=== PATIENT | female | born 1965 ===

== ENCOUNTER 2017-11-23 08:58 | Observation (INO) | payer MEDICARE, MEDICAID ==
[2017-11-23] MEDS ORDERED: Sodium Chloride 0.9% 1,000 ML IV ONE (09:26)
[2017-11-23] MEDS ORDERED: Sodium Chloride 0.9% 1,000 ML ONE ×2 (09:33→09:34)
[2017-11-23 09:45] LABS: HCG,QUALITATIVE URINE NEGATIVE (NEGATIVE)
[2017-11-23 09:48] LABS: SQUAMOUS EPITHIAL 1 /hpf (0-5); URINE BILIRUBIN NEGATIVE (NEGATIVE); URINE BLOOD NEGATIVE (NEGATIVE); URINE CLARITY Clear (Clear); URINE COLOR Yellow (YELLOW); URINE GLUCOSE (UA) NORMAL (Normal); URINE LEUKOCYTE ESTERASE NEG Leu/uL (Negative); URINE PROTEIN NEGATIVE (NEGATIVE); URINE UROBILINOGEN NORMAL mg/dL (0.2-1.0)
[2017-11-23 10:04] LABS: BASO % 0.5 % (0.0-2.0); EOS # 0.1 K/uL (0.0-0.7); EOS % 2.7 % (0.0-4.0); HEMOGLOBIN 12.5 g/dL (11.0-16.0); LYMPH # 2.3 K/uL (1.0-4.3); MEAN CELL VOLUME 84.5 fL (81.0-99.0); MEAN CORPUSCULAR HEMOGLOBIN 28.1 pg (27.0-31.0); MEAN CORPUSCULAR HGB CONC 33.2 g/dL (33.0-37.0); MEAN PLATELET VOLUME 9.4 fL (7.2-11.7); MONO # 0.4 K/uL (0.0-0.8); MONO % 6.9 % (0.0-10.0); NEUT # 2.7 K/uL (1.8-7.0); NEUT % 47.9 % (50.0-75.0); NRBC % 0.1 % (0.0-2.0); RBC 4.45 Mil/uL (3.80-5.20); RED CELL DISTRIBUTION WIDTH 16.9 % (11.5-14.5); WHITE BLOOD COUNT 5.6 K/uL (4.8-10.8)
[2017-11-23 10:21] LABS: ALB/GLOB RATIO 1.3 (1.0-2.1); ALBUMIN 4.3 g/dL (3.5-5.0); ALT/SGPT 12 U/L (9-52); AST/SGOT 24 U/L (14-36); BLOOD UREA NITROGEN 12 mg/dL (7-17); CALCIUM 9.4 mg/dl (8.6-10.4); GFR AFRICAN-AMERICAN > 60; GFR NON-AFRICAN AMERICAN > 60
[2017-11-23 10:26] LABS: D DIMER < 200 ng/mlDDU (0-243); INR 1.1; PARTIAL THROMBOPLASTIN TIME 30 SECONDS (21-34); PROTHROMBIN TIME 12.6 SECONDS (9.7-12.2)
[2017-11-23 10:31] LABS: CK-MB 1.78 ng/mL (0.0-3.38)
--- NOTE | 2017-11-23 10:49 | C.PDOC ---
History Of Present Illness 51 y/o female presents to the ER complaining of epigastric pain, nausea, vomiting, and diarrhea which began after she ate a hamburger yesterday. Patient is also complaining of intermittent left sided chest pain which has been present for the 2 weeks. The pain is pressure li,e, and sometimes radiates down the left arm. Patient denies having fever, chills, cough, and SOB. Time Seen by Provider: 11/23/17 09:04 Chief Complaint (Nursing): Abdominal Pain History Per: Patient History/Exam Limitations: no limitations Onset/Duration Of Symptoms: Days Current Symptoms Are (Timing): Still Present Severity: Moderate Location Of Pain/Discomfort: Epigastric Associated Symptoms: Nausea, Vomiting, Diarrhea. denies: Fever, Chills Past Medical History Reviewed: Historical Data, Nursing Documentation, Vital Signs Vital Signs: Last Vital Signs Temp 97.8 F 11/23/17 09:02 Pulse 72 11/23/17 09:02 Resp 17 11/23/17 09:02 BP 114/73 11/23/17 09:02 Pulse Ox 97 11/23/17 10:56 - Medical History PMH: Anemia, Anxiety, Asthma, Back Problems, Bronchitis, Hypercholesterolemia Surgical History: Cholecystectomy - [facility] Procedures INDIVID PSYCHOTHERAP NEC (08/13/13) OTHER GROUP THERAPY (08/13/13) Family History: States: No Known Family Hx - Social History Hx Tobacco Use: Yes Hx Alcohol Use: No Hx Substance Use: No - Immunization History Hx Tetanus Toxoid Vaccination: Yes Hx Influenza Vaccination: No Hx Pneumococcal Vaccination: Yes Review Of Systems Except As Marked, All Systems Reviewed And Found Negative. Constitutional: Negative for: Fever, Chills Cardiovascular: Positive for: Chest Pain (left-sided chest pain) Respiratory: Negative for: Cough, Shortness of Breath Gastrointestinal: Positive for: Nausea, Vomiting, Abdominal Pain (epigastric pain), Diarrhea Physical Exam - Physical Exam Appears: Non-toxic, No Acute Distress, Other (comfortable, speaking in full sentences) Skin: Normal Color, Warm, Dry Head: Atraumatic, Normacephalic Eye(s): bilateral: Normal Inspection Nose: Normal Oral Mucosa: Moist Neck: Supple Chest: Symmetrical Cardiovascular: Rhythm Regular Respiratory: Normal Breath Sounds, No Rales, No Rhonchi, No Wheezing Gastrointestinal/Abdominal: Soft, Tenderness (epigastric tenderness ), No Guarding, No Rebound, Other ((-) McBurney's, (-) Desai's) Neurological/Psych: Oriented x3, Normal Speech ED Course And Treatment - Laboratory Results Result Diagrams: 11/23/17 09:56 11/23/17 09:56 ECG: Interpreted By Me, Viewed By Me ECG Rhythm: Sinus Rhythm Interpretation Of ECG: NSR with Q waves in Leads II,III,aVF, V4, V5, and V6, no ST/ T wave changes Rate From EC O2 Sat by Pulse Oximetry: 97 (RA) Pulse Ox Interpretation: Normal Progress Note: Labs, UA, EKG, and CXR ordered. Disposition - Disposition Forms: [employer] (Puerto [place]ican) - Scribe Statement The provider has reviewed the documentation as recorded by the Scribe Jn Robb Provider Attestation: All medical record entries made by the Scribe were at my direction and personally dictated by me. I have reviewed the chart and agree that the record accurately reflects my personal performance of the history, physical exam, medical decision making, and the department course for this patient. I have also personally directed, reviewed, and agree with the discharge instructions and disposition.
--- NOTE | 2017-11-23 12:40 | RAD ---
Chest x-ray single frontal view History: Chest pain. Comparison: 06/29/2013 Findings: Mild venous congestion. Upper lobe granulomatous changes. Bibasilar breast and nipple shadows. Heart size within normal limits. Impression: No focal infiltrate or effusion.
--- NOTE | 2017-11-23 13:32 | CP.PCM.CON ---
History of Present Illness - History of Present Illness History of Present Illness: Cardiology Consult Note 51 year old female with a past medical history of anxiety, GERD, asthma, anemia , cervical radiculopathy who presents with 1 day of vomiting, diarrhea and epigastric discomfort. . The patient states she ate a hamburger meat that was cooked at home and within 15 minutes vomited it up with a total of four episodes of NBNB emesis and then four episodes of diarrhea. She reports going to bed and waking up with epigastric discomfort for which she took Zantac that she vomited up and then again tried taking another Zantac which she vomited up. The pain is located in the epigastric area, worsened after meals or lying supine , is non-radiating, "burning like" in character and has increased in frequency and severity in the past two weeks. She relays a history of GERD for which she has had Upper endoscopies in the poast and takes Protonix on a daily basis, except for this morning due to intractable nausea and vomiting. The pain is completely unrelated to activity or exertion. Upon further questioning, the patient states when she was walking in the ED (to give a urine sample) she had a recurrence of her chest pain. Cardiology was consulted given the patient is a female with atypical chest pain, a 25 pack year history of smoking, and EKG showing early repolarization and T-wave inversions in avL and V1-V2. 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 Family History: Father of CVA Social: Disabled, 25 pack year of smoking- reports quitting 3 months ago, denies alcohol or illicit drug use Review of Systems - Review of Systems All systems: reviewed and no additional remarkable complaints except (as per HPI ) Past Patient History - Past Social History Smoking Status: Former Smoker - CARDIAC Hx Hypercholesterolemia: Yes - PULMONARY Hx Asthma: Yes Hx Bronchitis: Yes - HEMATOLOGICAL/ONCOLOGICAL Hx Anemia: Yes - PSYCHIATRIC Hx Anxiety: Yes Hx Substance Use: No - SURGICAL HISTORY Hx Cholecystectomy: Yes - ANESTHESIA Hx Anesthesia: Yes Hx Anesthesia Reactions: No Meds Allergies/Adverse Reactions: Allergies Allergy/AdvReac Type Severity Reaction Status Date / Time cortisone Allergy Intermediate FATIGUE Verified 11/23/17 09:07 diazepam [From Valium] Allergy Intermediate ITCHING Verified 11/23/17 09:07 Physical Exam - Constitutional Appears: Non-toxic, No Acute Distress - Head Exam Head Exam: ATRAUMATIC, NORMOCEPHALIC - Eye Exam Eye Exam: EOMI, Normal appearance - ENT Exam ENT Exam: Mucous Membranes Moist - Neck Exam Neck exam: Positive for: Normal Inspection - Respiratory Exam Respiratory Exam: Clear to Auscultation Bilateral, NORMAL BREATHING PATTERN. absent: Accessory Muscle Use - Cardiovascular Exam Cardiovascular Exam: RRR, +S1, +S2 - GI/Abdominal Exam GI & Abdominal Exam: absent: Guarding, Rebound Additional comments: epigastric tenderness - Extremities Exam Extremities exam: Negative for: calf tenderness, pedal edema - Back Exam Back exam: absent: CVA tenderness (L), CVA tenderness (R) - Neurological Exam Neurological exam: Alert, CN II-XII Intact, Oriented x3 - Psychiatric Exam Psychiatric exam: Normal Mood - Skin Skin Exam: Intact, Normal Color, Warm Additional comments: multiple tatoos Results - Vital Signs Recent Vital Signs: Last Vital Signs Temp 97.8 F 11/23/17 09:02 Pulse 68 11/23/17 12:27 Resp 16 11/23/17 12:27 BP 118/60 11/23/17 12:27 Pulse Ox 99 11/23/17 12:27 - Labs Result Diagrams: 11/23/17 09:56 11/23/17 09:56 Labs: Laboratory Results - last 24 hr 11/23/17 11/23/17 11/23/17 09:41 09:56 09:56 WBC 5.6 RBC 4.45 Hgb 12.5 D Hct 37.6 MCV 84.5 D MCH 28.1 MCHC 33.2 RDW 16.9 H Plt Count 215 MPV 9.4 Neut % (Auto) 47.9 L Lymph % (Auto) 42.0 H Shoshone % (Auto) 6.9 Eos % (Auto) 2.7 Baso % (Auto) 0.5 Neut # (Auto) 2.7 Lymph # (Auto) 2.3 Shoshone # (Auto) 0.4 Eos # (Auto) 0.1 Baso # (Auto) 0.0 PT 12.6 H INR 1.1 APTT 30 D-Dimer, Quantitative < 200 Sodium Potassium Chloride Carbon Dioxide Anion Gap BUN Creatinine Est GFR ( Amer) Est GFR (Non-Af Amer) POC Glucose (mg/dL) Random Glucose Calcium Total Bilirubin AST ALT Alkaline Phosphatase Total Creatine Kinase CK-MB (Mass) Troponin I Total Protein Albumin Globulin Albumin/Globulin Ratio Urine Color Yellow Urine Clarity Clear Urine pH 5.0 Ur Specific Tram 1.027 Urine Protein Negative Urine Glucose (UA) Normal Urine Ketones Negative Urine Blood Negative Urine Nitrate Negative Urine Bilirubin Negative Urine Urobilinogen Normal Ur Leukocyte Esterase Neg Urine WBC (Auto) 1 Urine RBC (Auto) 1 Ur Squamous Epith Cells 1 Urine HCG, Qual Negative 11/23/17 11/23/17 09:56 10:18 WBC RBC Hgb Hct MCV MCH MCHC RDW Plt Count MPV Neut % (Auto) Lymph % (Auto) Shoshone % (Auto) Eos % (Auto) Baso % (Auto) Neut # (Auto) Lymph # (Auto) Shoshone # (Auto) Eos # (Auto) Baso # (Auto) PT INR APTT D-Dimer, Quantitative Sodium 139 Potassium 4.2 Chloride 99 Carbon Dioxide 27 Anion Gap 17 BUN 12 Creatinine 0.8 Est GFR ( Amer) > 60 Est GFR (Non-Af Amer) > 60 POC Glucose (mg/dL) 85 Random Glucose 88 Calcium 9.4 Total Bilirubin 0.6 AST 24 ALT 12 Alkaline Phosphatase 99 Total Creatine Kinase 99 CK-MB (Mass) 1.78 Troponin I < 0.0120 Total Protein 7.6 Albumin 4.3 Globulin 3.2 Albumin/Globulin Ratio 1.3 Urine Color Urine Clarity Urine pH Ur Specific Tram Urine Protein Urine Glucose (UA) Urine Ketones Urine Blood Urine Nitrate Urine Bilirubin Urine Urobilinogen Ur Leukocyte Esterase Urine WBC (Auto) Urine RBC (Auto) Ur Squamous Epith Cells Urine HCG, Qual - EKG Data EKG Interpreted by: Myself Rate: Normal - EKG Data When Compared to Previous EKG: No Significant Change Assessment & Plan - Assessment and Plan (Free Text) Assessment: 51 year old female with a past medical history of asthma, GERD, tobacco use, lumbago, anxiety disorder (unspecified) who presented to the ED for 1 day of nausea, vomiting, and epigastric pain. Patient also complained of chest discomfort in the ED and EKG showed early repolarization and T-wave inversions in V1-V2 and aVL. Plan: Exercise stress test to evaluate for underlying ischemic heart disease. - Date & Time Date: 11/23/17 Time: 14:40
[2017-11-23 16:58] LABS: CK-MB 1.38 ng/mL (0.0-3.38)
[2017-11-23 22:47] LABS: CK-MB 1.03 ng/mL (0.0-3.38)
[2017-11-24 02:32] VITALS: RESP 20; O2SAT 98
[2017-11-24 02:57] LABS: CK-MB 0.84 ng/mL (0.0-3.38)
--- NOTE | 2017-11-24 05:30 | HP ---
CHIEF COMPLAINT: Abdominal pain, chest pain. HISTORY OF PRESENT ILLNESS: Ms. Alfredo Angeles is a 51-year-old female with a past medical history of anemia, anxiety, asthma, back problems, bronchitis, hypercholesterolemia, came to [facility] Emergency Room with epigastric pain, nausea, vomiting, and diarrhea, which began after she ate hamburger yesterday. The patient is also complaining of intermittent left-sided chest pain, which has been present for 2 weeks. According to the patient, the pain is like pressure and sometimes radiates down to the left arm. The patient denies any fever, chills, nausea, vomiting, or diarrhea. PAST MEDICAL HISTORY: Anxiety, asthma, back problem, bronchitis, hypercholesterolemia. SURGICAL HISTORY: Cholecystectomy. FAMILY HISTORY: Father and mother, noncontributory. HABITS: Tobacco - yes, alcohol - no, substance abuse - no as per patient. ALLERGIES: THE PATIENT IS ALLERGIC WITH CORTISONE AND DIAZEPAM. HOME MEDICATIONS: Reviewed by me. REVIEW OF SYSTEMS: The patient is seen and examined on the bedside in her room. Looking comfortable. No nausea, vomiting, diarrhea. No hematuria. No hematochezia. No swelling of the legs. No headache. No dizziness. No fever. No chills. PHYSICAL EXAMINATION: VITAL SIGNS: Temperature 97.8, pulse 72, respiratory rate 17, blood pressure 114/73, pulse oximetry 97%. HEENT: Head normocephalic and atraumatic. Eyes, PERRLA. Extraocular muscles intact. Conjunctivae clear. Nose patent. Mucous membranes moist. NECK: Supple. No carotid bruits. No JVD or thyromegaly. CHEST: Bilaterally symmetrical. HEART: S1 and S2 positive. LUNGS: Clear to auscultation. ABDOMEN: Soft. Bowel sounds positive. No organomegaly. EXTREMITIES: No edema, no cyanosis. NEUROLOGICAL: The patient is awake, alert, oriented x3. LABORATORY DATA: White blood cells 5.6, hemoglobin 12.5, hematocrit 37.6, platelets 215. Sodium noted , potassium 4.2, BUN 12, creatinine 0.6, glucose 88. ASSESSMENT AND PLAN: Ms. Alfredo Angeles is a 51-year-old lady who came in with abdominal pain and chest pain. The patient has a history of asthma, bronchitis, anxiety, gastroesophageal reflux disease, dyspepsia, chronic pain syndrome, iron deficiency, vitamin D deficiency, insomnia. According to the patient, she is taking tramadol at home and Flexeril. Discussion done with the patient. History of tobacco abuse, lumbago, epigastric pain. EKG shows early repolarization and T-wave inversion in V1 and V2. Plan is to do stress test for evaluation of underlying ischemic heart disease as per motor racer. Labs ordered. GI and DVT prophylaxis. We will follow up. Remedios Glasgow MD MTDD
[2017-11-24 08:18] VITALS: BP 98/63; PULSE 65; TEMP 97.7
[2017-11-24 09:02] LABS: HEMOGLOBIN 11.5 g/dL (11.0-16.0); MEAN CELL VOLUME 84.1 fL (81.0-99.0); MEAN CORPUSCULAR HEMOGLOBIN 28.1 pg (27.0-31.0); MEAN CORPUSCULAR HGB CONC 33.4 g/dL (33.0-37.0); MEAN PLATELET VOLUME 9.5 fL (7.2-11.7); RBC 4.08 Mil/uL (3.80-5.20); RED CELL DISTRIBUTION WIDTH 17.3 % (11.5-14.5); WHITE BLOOD COUNT 4.6 K/uL (4.8-10.8)
[2017-11-24 09:19] LABS: BLOOD UREA NITROGEN 11 mg/dL (7-17); CALCIUM 8.9 mg/dl (8.6-10.4); GFR AFRICAN-AMERICAN > 60; GFR NON-AFRICAN AMERICAN > 60
[2017-11-24] MEDS ORDERED: ACETAMINOPHEN PO SCH (10:00)
[2017-11-24] MEDS ORDERED: Lidocaine 5% Patch TD SCH (10:00)
[2017-11-24] MEDS ORDERED: TRAMADOL HCL PO SCH (10:00)
[2017-11-24] MEDS ORDERED: Enoxaparin 30 mg Syringe SC SCH (10:00)
--- NOTE | 2017-11-24 10:13 | CP.PCM.CON ---
<Dao Hobbs - Last Filed: 11/24/17 10:05> History of Present Illness - History of Present Illness History of Present Illness: PGY5 GI Fellow Consult Note Patient is a 51yo female with PMHx significant for GERD, asthma, anxiety/ depression with prior suicide attempt per EMR, chronic pain who presented to the ED with chest and abdominal pain, nausea and vomiting. She states that she ate an undercooked hamburger one day prior to admission. Within 2 hours of ingestion, she developed diffuse abdominal cramping, nausea and regurgitated undigested food particles. Patient admits to episodes of nausea in the last 2-3 weeks with some early satiety/decreased appetite. She underwent EGD one year ago at [facility] and was placed on Protonix for short duration with moderate improvement in symptoms but has since ceased use. As symptoms seemed to worsen more recently she came to the ED for evaluation. While en route and during her ED stay, she developed left sided chest pain radiating down her left arm. She later admitted that she has been having intermittent episodes of left sided chest pain over the last several months. She believed these episodes were due to anxiety, but would like to be evaluated to rule out any cardiac issues as well. Currently, she is comfortable without any complaints. 12 system ROS performed and negative except where stated. PMHx: See HPI PSHx: open cholecystectomy (1986), C5-6 fusion, removal of benign brain lesion at age 12 (metal in place that is NOT MRI compatible) FHx: Father - CVA Social: 25 pack year smoker, denies alcohol or illicit drug use Endo: EGD 1 year ago at [facility] Past Patient History - Past Social History Smoking Status: Former Smoker - CARDIAC Hx Hypercholesterolemia: Yes - PULMONARY Hx Asthma: Yes Hx Bronchitis: Yes - HEMATOLOGICAL/ONCOLOGICAL Hx Anemia: Yes - PSYCHIATRIC Hx Anxiety: Yes Hx Substance Use: No - SURGICAL HISTORY Hx Cholecystectomy: Yes - ANESTHESIA Hx Anesthesia: Yes Hx Anesthesia Reactions: No Meds Allergies/Adverse Reactions: Allergies Allergy/AdvReac Type Severity Reaction Status Date / Time cortisone Allergy Intermediate FATIGUE Verified 11/23/17 09:07 diazepam [From Valium] Allergy Intermediate ITCHING Verified 11/23/17 09:07 - Medications Medications: Current Medications Acetaminophen (Tylenol 325mg Tab) 650 mg PO TID PRN PRN Reason: Pain, Mild (1-3) Last Admin: 11/23/17 20:32 Dose: 650 mg Alprazolam (Xanax) 0.25 mg PO BID PRN PRN Reason: Anxiety Stop: 11/30/17 19:52 Last Admin: 11/24/17 00:24 Dose: 0.25 mg Alprazolam (Xanax) 1 mg PO TID [facility] Last Admin: 11/24/17 09:22 Dose: 1 mg Aspirin (Aspirin Chewable) 81 mg PO DAILY [facility] Cyclobenzaprine HCl (Flexeril) 10 mg PO HS PRN PRN Reason: spasm Last Admin: 11/24/17 00:24 Dose: 10 mg Enoxaparin Sodium (Lovenox) 30 mg SC DAILY [facility] Last Admin: 11/24/17 09:22 Dose: Not Given Famotidine (Pepcid) 40 mg PO DAILY [facility] Last Admin: 11/24/17 09:22 Dose: 40 mg Ferrous Sulfate (Feosol) 325 mg PO TID [facility] Folic Acid (Folic Acid) 1 mg PO DAILY [facility] Home Med (Tramadol Hcl/Acetaminophen [Tramadol-Acetaminophn 37.5-325]) 1 tab PO TID [facility] Lidocaine (Lidoderm) 1 ea TD DAILY [facility] Last Admin: 11/24/17 09:22 Dose: 1 ea Tramadol HCl (Ultram) 50 mg PO TID PRN PRN Reason: Pain, severe (8-10) Last Admin: 11/24/17 09:23 Dose: 50 mg Physical Exam - Constitutional Appears: Non-toxic, No Acute Distress - Eye Exam Eye Exam: EOMI, PERRL - ENT Exam ENT Exam: Mucous Membranes Moist - Respiratory Exam Respiratory Exam: Clear to Auscultation Bilateral. absent: Rales, Rhonchi, Wheezes - Cardiovascular Exam Cardiovascular Exam: RRR, +S1, +S2 - GI/Abdominal Exam GI & Abdominal Exam: Normal Bowel Sounds, Soft. absent: Distended, Firm, Guarding, Organomegaly, Rigid, Tenderness Additional comments: open CCY scar on RUQ - Extremities Exam Extremities exam: Positive for: normal inspection. Negative for: pedal edema - Neurological Exam Neurological exam: Alert, Oriented x3 - Psychiatric Exam Psychiatric exam: Normal Affect, Normal Mood - Skin Skin Exam: Dry, Warm Results - Vital Signs Recent Vital Signs: Last Vital Signs Temp 97.7 F 11/24/17 08:05 Pulse 65 11/24/17 08:05 Resp 20 11/24/17 08:05 BP 98/63 L 11/24/17 08:05 Pulse Ox 98 11/24/17 08:05 - Labs Result Diagrams: 11/24/17 08:49 11/24/17 08:49 Labs: Laboratory Results - last 24 hr 11/23/17 11/23/17 11/23/17 09:56 09:56 09:56 WBC 5.6 RBC 4.45 Hgb 12.5 D Hct 37.6 MCV 84.5 D MCH 28.1 MCHC 33.2 RDW 16.9 H Plt Count 215 MPV 9.4 Neut % (Auto) 47.9 L Lymph % (Auto) 42.0 H Pope % (Auto) 6.9 Eos % (Auto) 2.7 Baso % (Auto) 0.5 Neut # (Auto) 2.7 Lymph # (Auto) 2.3 Pope # (Auto) 0.4 Eos # (Auto) 0.1 Baso # (Auto) 0.0 PT 12.6 H INR 1.1 APTT 30 D-Dimer, Quantitative < 200 Sodium 139 Potassium 4.2 Chloride 99 Carbon Dioxide 27 Anion Gap 17 BUN 12 Creatinine 0.8 Est GFR ( Amer) > 60 Est GFR (Non-Af Amer) > 60 POC Glucose (mg/dL) Random Glucose 88 Calcium 9.4 Total Bilirubin 0.6 AST 24 ALT 12 Alkaline Phosphatase 99 Total Creatine Kinase 99 CK-MB (Mass) 1.78 Troponin I < 0.0120 Total Protein 7.6 Albumin 4.3 Globulin 3.2 Albumin/Globulin Ratio 1.3 11/23/17 11/23/17 11/23/17 10:18 16:25 22:20 WBC RBC Hgb Hct MCV MCH MCHC RDW Plt Count MPV Neut % (Auto) Lymph % (Auto) Pope % (Auto) Eos % (Auto) Baso % (Auto) Neut # (Auto) Lymph # (Auto) Pope # (Auto) Eos # (Auto) Baso # (Auto) PT INR APTT D-Dimer, Quantitative Sodium Potassium Chloride Carbon Dioxide Anion Gap BUN Creatinine Est GFR ( Amer) Est GFR (Non-Af Amer) POC Glucose (mg/dL) 85 Random Glucose Calcium Total Bilirubin AST ALT Alkaline Phosphatase Total Creatine Kinase 90 80 CK-MB (Mass) 1.38 1.03 Troponin I < 0.0120 < 0.0120 Total Protein Albumin Globulin Albumin/Globulin Ratio 11/24/17 11/24/17 11/24/17 02:04 08:49 08:49 WBC 4.6 L RBC 4.08 Hgb 11.5 Hct 34.3 MCV 84.1 MCH 28.1 MCHC 33.4 RDW 17.3 H Plt Count 174 MPV 9.5 Neut % (Auto) Lymph % (Auto) Pope % (Auto) Eos % (Auto) Baso % (Auto) Neut # (Auto) Lymph # (Auto) Pope # (Auto) Eos # (Auto) Baso # (Auto) PT INR APTT D-Dimer, Quantitative Sodium 140 Potassium 3.9 Chloride 104 Carbon Dioxide 24 Anion Gap 16 BUN 11 Creatinine 0.8 Est GFR ( Amer) > 60 Est GFR (Non-Af Amer) > 60 POC Glucose (mg/dL) Random Glucose 87 Calcium 8.9 Total Bilirubin AST ALT Alkaline Phosphatase Total Creatine Kinase 76 CK-MB (Mass) 0.84 Troponin I < 0.0120 Total Protein Albumin Globulin Albumin/Globulin Ratio Assessment & Plan - Assessment and Plan (Free Text) Assessment: Patient is a 51yo female with PMHx significant for GERD, asthma, anxiety/ depression with prior suicide attempt per EMR, chronic pain who presented to the ED with chest and abdominal pain, nausea and vomiting. -Abdominal pain, nausea/vomiting - resolved at this time -Chest pain R/O ACS, angina Plan: -Recommend initiation of PPI therapy as reflux could mimic chest pain symptoms -Encourage cardiology evaluation to rule out any underlying cardiac issues -Lab work unremarkable -If symptoms remain resolved as they are at present can likely D/C PPI in 4-6 weeks -If symptoms persist despite PPI therapy, consider repeat EGD as outpatient - Date & Time Date: 11/24/17 Time: 06:15 <Stefnao Brady - Last Filed: 11/24/17 13:10> Meds - Medications Medications: Current Medications Acetaminophen (Tylenol 325mg Tab) 650 mg PO TID PRN PRN Reason: Pain, Mild (1-3) Last Admin: 11/23/17 20:32 Dose: 650 mg Alprazolam (Xanax) 0.25 mg PO BID PRN PRN Reason: Anxiety Stop: 11/30/17 19:52 Last Admin: 11/24/17 00:24 Dose: 0.25 mg Alprazolam (Xanax) 1 mg PO TID [facility] Last Admin: 11/24/17 13:09 Dose: 1 mg Aspirin (Aspirin Chewable) 81 mg PO DAILY [facility] Last Admin: 11/24/17 10:14 Dose: 81 mg Cyclobenzaprine HCl (Flexeril) 10 mg PO HS PRN PRN Reason: spasm Last Admin: 11/24/17 00:24 Dose: 10 mg Enoxaparin Sodium (Lovenox) 30 mg SC DAILY [facility] Last Admin: 11/24/17 09:22 Dose: Not Given Ferrous Sulfate (Feosol) 325 mg PO TID [facility] Last Admin: 11/24/17 13:09 Dose: 325 mg Folic Acid (Folic Acid) 1 mg PO DAILY [facility] Last Admin: 11/24/17 10:14 Dose: 1 mg Lidocaine (Lidoderm) 1 ea TD DAILY [facility] Last Admin: 11/24/17 09:22 Dose: 1 ea Pantoprazole Sodium (Protonix Ec Tab) 40 mg PO DAILY [facility] Tramadol HCl (Ultram) 50 mg PO TID PRN PRN Reason: Pain, severe (8-10) Last Admin: 11/24/17 09:23 Dose: 50 mg Results - Vital Signs Recent Vital Signs: Last Vital Signs Temp 97.7 F 11/24/17 08:05 Pulse 65 11/24/17 08:05 Resp 20 11/24/17 08:05 BP 98/63 L 11/24/17 08:05 Pulse Ox 98 11/24/17 08:05 - Labs Result Diagrams: 11/24/17 08:49 11/24/17 08:49 Labs: Laboratory Results - last 24 hr 11/23/17 11/23/17 11/24/17 16:25 22:20 02:04 WBC RBC Hgb Hct MCV MCH MCHC RDW Plt Count MPV Sodium Potassium Chloride Carbon Dioxide Anion Gap BUN Creatinine Est GFR ( Amer) Est GFR (Non-Af Amer) Random Glucose Calcium Total Creatine Kinase 90 80 76 CK-MB (Mass) 1.38 1.03 0.84 Troponin I < 0.0120 < 0.0120 < 0.0120 TSH 3rd Generation 11/24/17 11/24/17 08:49 08:49 WBC 4.6 L RBC 4.08 Hgb 11.5 Hct 34.3 MCV 84.1 MCH 28.1 MCHC 33.4 RDW 17.3 H Plt Count 174 MPV 9.5 Sodium 140 Potassium 3.9 Chloride 104 Carbon Dioxide 24 Anion Gap 16 BUN 11 Creatinine 0.8 Est GFR ( Amer) > 60 Est GFR (Non-Af Amer) > 60 Random Glucose 87 Calcium 8.9 Total Creatine Kinase CK-MB (Mass) Troponin I TSH 3rd Generation 1.76 Attending/Attestation - Attestation I have personally seen and examined this patient.: Yes I have fully participated in the care of the patient.: Yes I have reviewed all pertinent clinical information: Yes Notes (Text): 11/24/17 13:10 51 year old female with h/o gerd admitted with chest pain. Going for stress test today. Recommend PPI daily. Will sign off.
--- NOTE | 2017-11-24 10:15 | CP.PCM.PN ---
Subjective - Date & Time of Evaluation Date of Evaluation: 11/24/17 Time of Evaluation: 10:08 - Subjective Subjective: Cardiology Progress Note Patient seen and examined at bedside. Patient denies any chest pain, dyspnea, or shortness of breath at the time of my encounter. She does however report feeling anxious and having some back pain yesterday, likely secondary to not receiving her typical anxiolytic and analgesic medications, respectively. She is NPO except for meds for exercise stress test today. Objective - Vital Signs/Intake and Output Vital Signs (last 24 hours): Temp Pulse Resp BP Pulse Ox 97.7 F 65 20 98/63 L 98 11/24/17 08:05 11/24/17 08:05 11/24/17 08:05 11/24/17 08:05 11/24/17 08:05 Intake and Output: 11/24/17 11/24/17 06:59 18:59 Intake Total 500 Balance 500 - Medications Medications: Current Medications Acetaminophen (Tylenol 325mg Tab) 650 mg PO TID PRN PRN Reason: Pain, Mild (1-3) Last Admin: 11/23/17 20:32 Dose: 650 mg Alprazolam (Xanax) 0.25 mg PO BID PRN PRN Reason: Anxiety Stop: 11/30/17 19:52 Last Admin: 11/24/17 00:24 Dose: 0.25 mg Alprazolam (Xanax) 1 mg PO TID [facility] Last Admin: 11/24/17 09:22 Dose: 1 mg Aspirin (Aspirin Chewable) 81 mg PO DAILY [facility] Cyclobenzaprine HCl (Flexeril) 10 mg PO HS PRN PRN Reason: spasm Last Admin: 11/24/17 00:24 Dose: 10 mg Enoxaparin Sodium (Lovenox) 30 mg SC DAILY [facility] Last Admin: 11/24/17 09:22 Dose: Not Given Famotidine (Pepcid) 40 mg PO DAILY [facility] Last Admin: 11/24/17 09:22 Dose: 40 mg Ferrous Sulfate (Feosol) 325 mg PO TID [facility] Folic Acid (Folic Acid) 1 mg PO DAILY [facility] Home Med (Tramadol Hcl/Acetaminophen [Tramadol-Acetaminophn 37.5-325]) 1 tab PO TID [facility] Lidocaine (Lidoderm) 1 ea TD DAILY [facility] Last Admin: 11/24/17 09:22 Dose: 1 ea Tramadol HCl (Ultram) 50 mg PO TID PRN PRN Reason: Pain, severe (8-10) Last Admin: 11/24/17 09:23 Dose: 50 mg - Labs Labs: 11/24/17 08:49 11/24/17 08:49 PT 12.6 SECONDS (9.7-12.2) H 11/23/17 09:56 INR 1.1 11/23/17 09:56 APTT 30 SECONDS (21-34) 11/23/17 09:56 - Constitutional Appears: Well, Non-toxic, No Acute Distress - Head Exam Head Exam: ATRAUMATIC, NORMOCEPHALIC - Eye Exam Eye Exam: EOMI, Normal appearance - ENT Exam ENT Exam: Mucous Membranes Moist - Neck Exam Neck Exam: Normal Inspection - Respiratory Exam Respiratory Exam: Clear to Ausculation Bilateral, NORMAL BREATHING PATTERN. absent: Accessory Muscle Use - Cardiovascular Exam Cardiovascular Exam: RRR, +S1, +S2 - GI/Abdominal Exam GI & Abdominal Exam: Soft, Normal Bowel Sounds - Extremities Exam Extremities Exam: Normal Inspection - Back Exam Back Exam: NORMAL INSPECTION. absent: CVA tenderness (L), CVA tenderness (R) - Neurological Exam Neurological Exam: Alert, Awake, Oriented x3 Neuro motor strength exam: Left Upper Extremity: 5, Right Upper Extremity: 5, Left Lower Extremity: 5, Right Lower Extremity: 5 - Psychiatric Exam Psychiatric exam: Normal Affect, Normal Mood - Skin Skin Exam: Dry, Intact, Normal Color, Warm Assessment and Plan - Assessment and Plan (Free Text) Assessment: 51 year old female with a past medical history of asthma, GERD, tobacco use, lumbago, anxiety disorder (unspecified) who presented to the ED for 1 day of nausea, vomiting, and epigastric pain. Patient also complained of chest discomfort in the ED and EKG showed early repolarization and T-wave inversions in V1-V2 and aVL. Plan: Exercise stress test normal, patient demonstrated good exercise tolerance. From a cardiac standpoint, patient is stable for discharge. As always, thank you for allowing us to participate in the care of this patient.
--- NOTE | 2017-11-24 14:04 | CP.PCM.PN ---
Subjective - Date & Time of Evaluation Date of Evaluation: 11/24/17 Time of Evaluation: 13:52 - Subjective Subjective: PT SEEN AFTER STRESS TEST AND CLEARED FOR D/C PER CARDIO. REVIEWED GI NOTE AND THEY ALSO RECOMMEND PPI, OUTPATIENT F/U AND MANAGEMENT. OK PER DR. CONDON TO D/ C PT HOME TODAY. PT TO F/U WITH EITHER HER OR PMD WITHIN 1 WEEK. RX SENT TO PT' S PHARMACY FOR PROTONIX. PT VERBALIZES UNDERSTANDING OF D/C PLAN. SEE BELOW FOR D/C PLAN SENT WITH PT. NO FURTHER ORDERS. -FOLLOW UP WITH YOUR PRIMARY DOCTOR OR DR. CONDON IN THE OFFICE WITHIN 7 DAYS--- CALL THE OFFICE ON MONDAY TO SCHEDULE AN APPT. -MAY FOLLOW UP WITH DR. CORDOBA, THE STOMACH DOCTOR, WITHIN 1 MONTH---CALL THE OFFICE TO SCHEDULE AN APPT. -CONTINUE YOUR HOME MEDICATIONS USUAL. -NEW PRESCRIPTION INCLUDES: 1) PROTONIX 40 MG ONCE A DAY (YOU MAY ONLY NEED TO BE ON THIS FOR 1 MONTH; AFTER THAT IT WILL DEPEND ON YOUR DOCTOR'S PREFERENCE). -FOR FURTHER CONCERNS OR QUESTIONS, CONTACT DR. CONDON'S OFFICE. Objective - Vital Signs/Intake and Output Vital Signs (last 24 hours): Temp Pulse Resp BP Pulse Ox 97.7 F 65 20 98/63 L 98 11/24/17 08:05 11/24/17 08:05 11/24/17 08:05 11/24/17 08:05 11/24/17 08:05 Intake and Output: 11/24/17 11/24/17 06:59 18:59 Intake Total 500 Balance 500 - Medications Medications: Current Medications Acetaminophen (Tylenol 325mg Tab) 650 mg PO TID PRN PRN Reason: Pain, Mild (1-3) Last Admin: 11/23/17 20:32 Dose: 650 mg Alprazolam (Xanax) 0.25 mg PO BID PRN PRN Reason: Anxiety Stop: 11/30/17 19:52 Last Admin: 11/24/17 00:24 Dose: 0.25 mg Alprazolam (Xanax) 1 mg PO TID [facility] Last Admin: 11/24/17 13:09 Dose: 1 mg Aspirin (Aspirin Chewable) 81 mg PO DAILY [facility] Last Admin: 11/24/17 10:14 Dose: 81 mg Cyclobenzaprine HCl (Flexeril) 10 mg PO HS PRN PRN Reason: spasm Last Admin: 11/24/17 00:24 Dose: 10 mg Enoxaparin Sodium (Lovenox) 30 mg SC DAILY [facility] Last Admin: 11/24/17 09:22 Dose: Not Given Ferrous Sulfate (Feosol) 325 mg PO TID [facility] Last Admin: 11/24/17 13:09 Dose: 325 mg Folic Acid (Folic Acid) 1 mg PO DAILY [facility] Last Admin: 11/24/17 10:14 Dose: 1 mg Lidocaine (Lidoderm) 1 ea TD DAILY [facility] Last Admin: 11/24/17 09:22 Dose: 1 ea Pantoprazole Sodium (Protonix Ec Tab) 40 mg PO DAILY [facility] Tramadol HCl (Ultram) 50 mg PO TID PRN PRN Reason: Pain, severe (8-10) Last Admin: 11/24/17 09:23 Dose: 50 mg - Labs Labs: 11/24/17 08:49 11/24/17 08:49 PT 12.6 SECONDS (9.7-12.2) H 11/23/17 09:56 INR 1.1 11/23/17 09:56 APTT 30 SECONDS (21-34) 11/23/17 09:56
[2017-11-25] MEDS ORDERED: Pantoprazole 40 mg EC Tab PO SCH (10:00)
== END 2017-11-24 14:35 | disposition home or self-care (01) ==
LOC: C.ER 08:58 → C.9E 11:07 → C.5S 12:23
PROVIDERS: ADMIT Internal Medicine; ATTEND Internal Medicine
DX: R10.13 Epigastric pain (principal); K21.9 Gastro-esophageal reflux disease without esophagitis; J45.909 Unspecified asthma, uncomplicated; F41.9 Anxiety disorder, unspecified; R11.2 Nausea with vomiting, unspecified; R19.7 Diarrhea, unspecified; E78.00 Pure hypercholesterolemia, unspecified; R07.89 Other chest pain; Z88.8 Allergy status to other drugs, medicaments and biological substances; G47.00 Insomnia, unspecified; D50.9 Iron deficiency anemia, unspecified; E55.9 Vitamin D deficiency, unspecified; G89.4 Chronic pain syndrome; M54.5 Low back pain; M54.12 Radiculopathy, cervical region; Z87.891 Personal history of nicotine dependence; Z91.5 Personal history of self-harm; F32.9 Major depressive disorder, single episode, unspecified; R68.81 Early satiety; R63.0 Anorexia
CPT/HCPCS: 36415; 71045; 80048; 80053; 81001; 82550; 82553; 82948; 84443; 84484; 84703; 85025; 85027; 85378; 85610; 85730; 93017; 96361; 96374; 99285; G0378; J7040

== ENCOUNTER 2018-05-15 15:38 | Emergency (ER) | payer MEDICARE, MEDICAID ==
[2018-05-15 16:03] VITALS: BMI 21.2
[2018-05-15 16:06] VITALS: RESP 18
[2018-05-15] MEDS ORDERED: MethylPREDNISolone 40 mg Vial IVP STA (16:48)
[2018-05-15] MEDS ORDERED: DiphenhydrAMINE 50 mg/ml Inj IVP STA (16:48)
[2018-05-15] MEDS ORDERED: Sodium Chloride 0.9% 1,000 ML IV ONE (16:51)
[2018-05-15] MEDS ORDERED: Sodium Chloride 0.9% 1,000 ML ONE (17:21)
[2018-05-15] MEDS ORDERED: MethylPREDNISolone 40 mg Vial ONE (17:21)
[2018-05-15] MEDS ORDERED: DiphenhydrAMINE 50 mg/ml Inj ONE (17:21)
--- NOTE | 2018-05-15 18:33 | C.PDOC ---
History Of Present Illness 52 yo female c/o itchy red rash that started 3 days ago. Pt believes it may be secondary to working with acrylic though she has used it before without a reaction. Jayne reports feeling "shallow breathing." Admits to feeling anxious and has h/o anxiety which she takes xanax for though has not taken any today. States she has been taking Benadryl 25 mg every 6 hours. Denies lip or tongue swelling, throat closing sensation, chest pain, or increasing rash. Time Seen by Provider: 05/15/18 16:24 Chief Complaint (Nursing): Allergic Reaction History Per: Patient History/Exam Limitations: no limitations Onset/Duration Of Symptoms: Days, Waxing/Waning Current Symptoms Are (Timing): Still Present Possible Cause: Unknown Associated Symptoms: Skin Rash. denies: Trouble Swallowing, Dizziness, Chest Pain Home/EMS Treatment: Benadryl Past Medical History Vital Signs: Last Vital Signs Temp 98.6 F 05/15/18 16:02 Pulse 85 05/15/18 16:02 Resp 18 05/15/18 16:02 BP 139/86 05/15/18 16:02 Pulse Ox 96 05/15/18 16:02 - Medical History PMH: Anemia, Anxiety, Asthma, Back Problems, Bronchitis, Hypercholesterolemia Surgical History: Cholecystectomy - [facility] INDIVID PSYCHOTHERAP NEC (08/13/13) OTHER GROUP THERAPY (08/13/13) Family History: States: Unknown Family Hx - Social History Hx Tobacco Use: Yes Hx Alcohol Use: No Hx Substance Use: No - Immunization History Hx Tetanus Toxoid Vaccination: Yes Hx Influenza Vaccination: No Hx Pneumococcal Vaccination: Yes Review Of Systems Except As Marked, All Systems Reviewed And Found Negative. Skin: Positive for: Rash Physical Exam - Physical Exam Appears: Well, Non-toxic, No Acute Distress, Other (very anxious) Skin: Warm, Dry, Rash ((+) urticaria to the left UE, right hand, and b/l lower extremities. ) Head: Atraumatic, Normacephalic Eye(s): bilateral: Normal Inspection, PERRL, EOMI Nose: Normal Oral Mucosa: Moist Throat: Normal, No Erythema, No Exudate, No Drooling Neck: Normal, Normal ROM, Supple Chest: Symmetrical Cardiovascular: Rhythm Regular Respiratory: Normal Breath Sounds, No Accessory Muscle Use Gastrointestinal/Abdominal: Normal Exam, Soft, No Tenderness Back: Normal Inspection Extremity: Normal ROM Neurological/Psych: Oriented x3, Normal Speech, Normal Cognition ED Course And Treatment O2 Sat by Pulse Oximetry: 96 Progress Note: Benadryl and Solumedrol ordered IV. Pt notes she is not allergic to Solumedrol or prednisone, she has taken in the past for her asthma without reaction. Notes that she had spinal cortisone injections and became "stiff". On re-evaluation, Patient is resting comfortably, tolerating PO, has no shortness of breath, has no intra-oral swelling, no stridor. Patient notes that pruritus has improved. Also notes that the rash has lessened. Patient was advised to avoid potential allergens, and to follow up with physician in 1-2 days. Disposition - Disposition Disposition: HOME/ ROUTINE Disposition Time: 18:31 Condition: STABLE Additional Instructions: Avoid any potential allergens. Follow up with the manager social work in 1-2 days. Ret urn to ER if symptoms persist or worsen. Prescriptions: DiphenhydrAMINE [Benadryl] 25 mg PO Q6 #20 cap predniSONE [Prednisone] 40 mg PO DAILY #8 tab Instructions: Skin Rash (DC) Forms: [facility] ([place]) - Clinical Impression Clinical Impression: Rash
[2018-05-15 18:40] VITALS: BP 135/84; PULSE 78; TEMP 98.8
[2018-05-15 19:48] VITALS: O2SAT 96
== END 2018-05-15 19:05 | disposition home or self-care (01) ==
LOC: C.ER 15:38
DX: R21 Rash and other nonspecific skin eruption (principal)